=== PATIENT | female | born 1935 | race Caucasian/White ===

== ENCOUNTER 2021-06-27 16:12 | Inpatient (IN) ==
--- NOTE | 2021-06-27 16:40 | Emergency Department Note ---
Impression & Plan Atrial fibrillation with RVR, Edema, peripheral ED Provider Note NAME: NILSA COOLEY AGE: 86 SEX: F : 1935 ARRIVES VIA: Ambulance INFORMANT: Patient, EMS ED PROVIDER(S): Brian Vanessa DO CHIEF COMPLAINT: Palpitations HPI: The patient is an 86-year-old female who presented to the emergency department by ambulance from [facility] for an evaluation of palpitations. The patient is has been experiencing lower extremity edema and dyspnea on exertion for the last 2 weeks. She has been taking her medications at home according to her and the prehospital personnel. Her daughter took her to see the clinic today and she was found to be in rapid atrial fibrillation. This would be a new diagnosis for her. For this reason she was sent to the emergency department for further evaluation and work-up. The patient states at rest she has no symptoms. She does have significant exertional dyspnea. She denies havi ng any chest pain. She states she has no difficulty urinating. She denies having any cough or fever. The patient denies having any recent trauma. She states she has noticed a lot of swelling in both legs. She has had no decreased urination. ROS: See above HPI for pertinent positives & negatives. A total of 10 systems reviewed and were otherwise negative. PAST MEDICAL HISTORY: See Below PAST SURGICAL HISTORY: See Below FAMILY HISTORY: See Below SOCIAL HISTORY: See Below HOME MEDICATIONS: See Below ALLERGIES: See Below VITALS: See Below PHYSICAL EXAMINATION: GENERAL: Patient is awake alert in no acute distress patient is resting comfortably and showing no signs of anxiety EYES: The conjunctivae are clear. The pupils are round and reactive. EARS, NOSE, MOUTH AND THROAT: The nose is without any evidence of any deformity. NECK: The neck is nontender and supple. RESPIRATORY: Diminished breath sounds are noted both bases. There is no tachypnea or conversational dyspnea. CARDIOVASCULAR: Tachycardic and irregular heart sounds were noted to auscultation. No definite murmur was noted. GASTROINTESTINAL: The abdomen is soft. Abdomen is nontender. MUSCULOSKELETAL/EXTREMITIES: There is no evidence of gross deformity full range of motion is noted in the hips and shoulders. SKIN: Skin is warm and dry. Pedal edema was noted bilaterally. NEUROLOGIC: Patient is awake alert and oriented x3. MEDICAL DECISION MAKING: The patient is an 86-year-old female who presented to the emergency department for an evaluation of palpitations. The patient has had ongoing dyspnea on exertion and lower extremity edema. She was found to be in rapid atrial fibrillation and was sent to the emergency department for further evaluation. The patient was treated with a small fluid bolus as well as IV Cardizem. Symptoms significantly improved. I discussed the patient's laboratory and radiographic studies with her. [facility] also [facility] They have agreed to evaluate the patient in the emergency department for further management and disposition. Triage Nursing notes reviewed. Prior medical records reviewed Vital Signs: reviewed and remarkable for tachycardia. Differential diagnosis: Reactive airway disease, pneumonia, pneumothorax, COPD, CHF, infections, cardiac ischemia, pulmonary embolism, musculoskeletal, gastrointestinal, as well as other pathologies. ER treatment provided: See below Diagnostics interpreted by me: ECG: EKG was obtained in the emergency department. My interpretation is atrial fibrillation at 153 bpm. There were no PVCs noted. Low voltage was noted throughout. This was compared to the tracing done in the clinic earlier in the day. There was no significant changes noted. Cardiac Monitoring: An order was placed for continuous cardiac monitoring. The monitor shows a rate of 115 bpm with atrial fibrillation with RVR. Laboratory studies: As stated above and show below. Imaging studies: See below Consultation(s): I discussed this case with Afsaneh who was information assurance analyst [facility]. Past Med/Surg History Medical History Osteoporosis Surgical History History of cataract surgery History of hysterectomy History of tonsillectomy and adenoidectomy Family History Sister Breast cancer Mother Coronary heart disease Social History (Updated 06/27/21 @ 19:10 by Danica Acevedo PA-C) Smoking Status: Never smoker Hx Alcohol Use: No Hx Substance Use: No Feels Safe at Home: Yes Allergies Allergies Allergy/AdvReac Type Severity Reaction Status Date / Time No Known Allergies Allergy Unverified 06/27/21 18:13 Home Meds Home Medications Medication Instructions Recorded Confirmed alendronate 70 mg tablet See Rx Instructions .ROUTE .COMPLEX 06/27/21 06/27/21 Results & Data (ED) Vital Signs Vital Signs - 24 hr 06/27/21 16:50 06/27/21 16:56 06/27/21 17:31 Temperature 36.7 C Temperature Source Oral Pulse Rate 140 H 99 H Pulse Rate [Apical] Respiratory Rate 18 Blood Pressure 124/94 144/94 H Blood Pressure [Left Arm] Blood Pressure Mean 104 110 Blood Pressure Mean [Left Arm] Pulse Oximetry 97 97 97 Oxygen Delivery Method Room Air Room Air Room Air Sepsis Recent Fever Within 48 Hours No Sepsis New/Unexplained Change in Mental Status No Sepsis Action Taken by Nursing No Action Required 06/27/21 17:40 06/27/21 17:46 Temperature Temperature Source Pulse Rate Pulse Rate [Apical] 100 H 98 H Respiratory Rate 18 Blood Pressure Blood Pressure [Left Arm] 144/96 H 120/84 Blood Pressure Mean Blood Pressure Mean [Left Arm] 112 96 Pulse Oximetry 97 96 Oxygen Delivery Method Room Air Room Air Sepsis Recent Fever Within 48 Hours Sepsis New/Unexplained Change in Mental Status Sepsis Action Taken by Assisted Medications Current Medication List: was personally reviewed by me Laboratory Data Attestation: I reviewed the patient's lab results. Result diagrams: 06/27/21 17:00 06/27/21 17:00 Lab Results 06/27/21 06/27/21 06/27/21 Range/Units 16:55 17:00 17:00 WBC 7.77 (4.8-10.8) K/uL RBC 4.08 L (4.2-5.4) M/uL Hgb 11.9 L (12.0-16.0) g/dL Hct 38.5 (37-47) % MCV 94.4 (80-100) fL MCH 29.2 (25-34) pg MCHC 30.9 L (32-36) g/dL RDW Std Deviation 48.8 H (36.4-46.3) fL RDW Coeff of Milady 14.0 (11.5-14.5) % Plt Count 308 (130-400) K/uL MPV 10.2 (7.4-10.4) fL Immature Gran % (Auto) 0.1 % Neut % (Auto) 60.3 % Lymph % (Auto) 26.9 % [place] % (Auto) 10.8 % Eos % (Auto) 1.4 % Baso % (Auto) 0.5 % Neut # (Auto) 4.68 (1.4-6.5) K/uL Lymph # (Auto) 2.09 (1.2-3.4) K/uL [place] # (Auto) 0.84 H (0.11-0.59) K/uL Eos # (Auto) 0.11 (0-0.5) K/uL Baso # (Auto) 0.04 (0-0.2) K/uL Immature Gran # (Auto) 0.01 (0.00-0.02) K/uL PT 10.3 (9.0-12.0) Seconds INR 1.0 (0.9-1.1) APTT 24.1 (21.0-31.0) Seconds PTT Ratio 0.9 Sodium (136-145) mmol/L Potassium (3.5-5.1) mmol/L Chloride (98-107) mmol/L Carbon Dioxide (21-32) mmol/L Anion Gap (3-11) BUN (7-18) mg/dl Creatinine (0.6-1.2) mg/dl Est Cr Clr Drug Dosing ml/min Est GFR ( Amer) ml/min Est GFR (Non-Af Amer) ml/min BUN/Creatinine Ratio (10-20) Glucose (70-99) mg/dl Calcium (8.5-10.1) mg/dl Magnesium (1.8-2.4) mg/dl Total Bilirubin (0.2-1) mg/dl AST (15-37) U/L ALT (12-78) Alkaline Phosphatase (45-117) U/L Troponin I (0-0.045) ng/ml NT-Pro-B Natriuret Pep (0-1800) pg/ml Total Protein (6.4-8.2) gm/dl Albumin (3.4-5.0) gm/dl Globulin (2.5-4.0) gm/dl Albumin/Globulin Ratio (0.9-2) TSH (0.300-4.500) uIu/ml SARS-CoV-2, RNA, NAAT NEGATIVE (NEGATIVE) 06/27/21 Range/Units 17:00 WBC (4.8-10.8) K/uL RBC (4.2-5.4) M/uL Hgb (12.0-16.0) g/dL Hct (37-47) % MCV (80-100) fL MCH (25-34) pg MCHC (32-36) g/dL RDW Std Deviation (36.4-46.3) fL RDW Coeff of Milady (11.5-14.5) % Plt Count (130-400) K/uL MPV (7.4-10.4) fL Immature Gran % (Auto) % Neut % (Auto) % Lymph % (Auto) % [place] % (Auto) % Eos % (Auto) % Baso % (Auto) % Neut # (Auto) (1.4-6.5) K/uL Lymph # (Auto) (1.2-3.4) K/uL [place] # (Auto) (0.11-0.59) K/uL Eos # (Auto) (0-0.5) K/uL Baso # (Auto) (0-0.2) K/uL Immature Gran # (Auto) (0.00-0.02) K/uL PT (9.0-12.0) Seconds INR (0.9-1.1) APTT (21.0-31.0) Seconds PTT Ratio Sodium 139 (136-145) mmol/L Potassium 4.7 (3.5-5.1) mmol/L Chloride 107 (98-107) mmol/L Carbon Dioxide 26 (21-32) mmol/L Anion Gap 6.0 (3-11) BUN 15 (7-18) mg/dl Creatinine 0.86 (0.6-1.2) mg/dl Est Cr Clr Drug Dosing 45.5 ml/min Est GFR ( Amer) 70.4 ml/min Est GFR (Non-Af Amer) 60.7 ml/min BUN/Creatinine Ratio 17.9 (10-20) Glucose 98 (70-99) mg/dl Calcium 9.0 (8.5-10.1) mg/dl Magnesium 2.3 (1.8-2.4) mg/dl Total Bilirubin 0.4 (0.2-1) mg/dl AST 18 (15-37) U/L ALT 22 (12-78) Alkaline Phosphatase 58 (45-117) U/L Troponin I < 0.015 (0-0.045) ng/ml NT-Pro-B Natriuret Pep 1908 H (0-1800) pg/ml Total Protein 7.2 (6.4-8.2) gm/dl Albumin 3.8 (3.4-5.0) gm/dl Globulin 3.4 (2.5-4.0) gm/dl Albumin/Globulin Ratio 1.1 (0.9-2) TSH 2.330 (0.300-4.500) uIu/ml SARS-CoV-2, RNA, NAAT (NEGATIVE) Administered Medications Diltiazem HCl 125 mg/ Dextrose 125 mls @ 5 mls/hr IV .Q24H [facility]; Protocol Stop: 07/27/21 18:44 Last Admin: 06/27/21 19:35 Dose: 5 mg/hr, 5 mls/hr Documented by: [id number] Cosigned by: [id number] Heparin Sodium/Dextrose (Heparin Sodium/Dextrose) 25,000 units in 500 mls @ 22 mls/hr IV .[id number] [facility]; Protocol Stop: 07/27/21 19:29 Last Admin: 06/27/21 21:39 Dose: 1,100 units/hr, 22 mls/hr Documented by: [id number] Cosigned by: [id number] Metoprolol Tartrate (Metoprolol Tartrate 25 Mg Tab) 12.5 mg PO BID [facility] Stop: 07/27/21 20:59 Last Admin: 06/27/21 23:08 Dose: 12.5 mg Documented by: [id number] Discontinued Medications Diltiazem HCl (Diltiazem Hcl 5 Mg/Ml 5 Ml Vial) 10 mg IV NOW STA Stop: 06/27/21 17:16 Last Admin: 06/27/21 17:26 Dose: 10 mg Documented by: [id number] Cosigned by: [id number] Sodium Chloride (Nss) 500 mls @ 999 mls/hr IV .Q31M ONE Stop: 06/27/21 17:45 Last Infusion: 06/27/21 18:06 Dose: 0 mls/hr Documented by: [id number] Admin: 06/27/21 17:26 Dose: 999 mls/hr Documented by: [id number] Imaging Data Radiologist's Impression: Chest X-Ray 06/27/21 16:37 XR chest 1V portable CLINICAL HISTORY: weakness TECHNIQUE: Single frontal radiograph of the chest was obtained. Comparison: None available at the time of this dictation. FINDINGS: No lines and tubes are seen. The cardiomediastinal silhouette is normal. The lungs are clear. No evidence of pleural effusion or pneumothorax. IMPRESSION: No acute chest disease. ACT 112: Negative or not required by law. Electronically signed by: Olivier Arango M.D. 06/27/2021 5:01 PM Discharge Plan Visit Data Chief Complaint: Cardiac Assessment Stated Complaint: CARDIAC ASSESSMENT (NEW ONSET A-FIB), LEG EDEMA ED Provider: Brian Vanessa Discharge Problem: Atrial fibrillation with RVR, Edema, peripheral Patient Disposition: Being Evaluated by Hospitalist Discharge Instructions Interventions: ED Discharge Assessment Last Done: 06/27/21 19:59
--- NOTE | 2021-06-27 17:02 | XRay Report ---
XR chest 1V portable CLINICAL HISTORY: weakness TECHNIQUE: Single frontal radiograph of the chest was obtained. Comparison: None available at the time of this dictation. FINDINGS: No lines and tubes are seen. The cardiomediastinal silhouette is normal. The lungs are clear. No evid ence of pleural effusion or pneumothorax. IMPRESSION: No acute chest disease. ACT 112: Negative or not required by law. Electronically signed by: Olivier Arango M.D. 06/27/2021 5:01 PM
[2021-06-27 17:07] LABS: Basophils # (auto) 0.04 K/uL (0-0.2); Basophils % (auto) 0.5 %; Eosinophils # (auto) 0.11 K/uL (0-0.5); Eosinophils % (auto) 1.4 %; Hematocrit (blood only) 38.5 % (37-47); Hemoglobin 11.9 g/dL (12.0-16.0); Immature Granulocytes # (auto) 0.01 K/uL (0.00-0.02); Immature Granulocytes % (auto) 0.1 %; Lymphocytes # (auto) 2.09 K/uL (1.2-3.4); Lymphocytes % (auto) 26.9 %; Mean Corpuscular Hemoglobin 29.2 pg (25-34); Mean Corpuscular Hgb Conc 30.9 g/dL (32-36); Mean Corpuscular Volume 94.4 fL (80-100); Mean Platelet Volume 10.2 fL (7.4-10.4); Monocytes # (auto) 0.84 K/uL (0.11-0.59); Monocytes % (auto) 10.8 %; Neutrophils # (auto) 4.68 K/uL (1.4-6.5); Neutrophils % (auto) 60.3 %; Platelet Count 308 K/uL (130-400); RDW Standard Deviation 48.8 fL (36.4-46.3); Red Blood Count 4.08 M/uL (4.2-5.4); White Blood Count 7.77 K/uL (4.8-10.8)
[2021-06-27] MEDS ORDERED: SODIUM CHLORIDE 0.9% 500 ML IV ONE (17:15)
[2021-06-27] MEDS ORDERED: dilTIAZem HCl 5 MG/ML 5 ML VIAL IV STA (17:15)
[2021-06-27 17:18] LABS: Partial Thromboplastin Ratio 0.9; Partial Thromboplastin Time 24.1 Seconds (21.0-31.0); Prothrombin Time 10.3 Seconds (9.0-12.0)
[2021-06-27 17:23] LABS: Alanine Aminotransferase 22 (12-78); Albumin Level 3.8 gm/dl (3.4-5.0); Aspartate Aminotransferase 18 U/L (15-37); BUN Creatinine Ratio 17.9 (10-20); Blood Urea Nitrogen 15 mg/dl (7-18); Carbon Dioxide 26 mmol/L (21-32); Chloride 107 mmol/L (98-107); Creatinine Clr Calc Pharmacy 45.5 ml/min; Est GFR (African American) 70.4 ml/min; Est GFR (Non-African American) 60.7 ml/min; Glucose 98 mg/dl (70-99); Magnesium 2.3 mg/dl (1.8-2.4); Potassium 4.7 mmol/L (3.5-5.1); Sodium 139 mmol/L (136-145)
[2021-06-27 17:34] LABS: Albumin Globulin Ratio 1.1 (0.9-2); Alkaline Phosphatase 58 U/L (45-117); Bilirubin,Total 0.4 mg/dl (0.2-1); Globulin 3.4 gm/dl (2.5-4.0); NT Pro B Type Natriuretic Pept 1908 pg/ml (0-1800); Total Protein 7.2 gm/dl (6.4-8.2); Troponin I < 0.015 ng/ml (0-0.045)
--- NOTE | 2021-06-27 18:20 | History & Physical Report ---
Date of Service June 27, 2021 Assessment & Plan (1) Atrial fibrillation with RVR: Plan: Patient is 86-year-old female with PMH osteoporosis presented to ER from PCPs office for found new onset atrial fibrillation. C/O exertional SOB x month. In ER patient afebrile, P: 140, R: 18, BP 124/94, 97% on room air. No leukocytosis, no significant electrolyte abnormality, TSH WNL, negative initial troponin. EKG A. fib RVR rate 153. In ER was given 500 mL NSS, diltiazem 10 mg IV pulse down to 98 and back up to 130's Start Cardizem drip [id number]: 3 (age, female) IV heparin Metoprolol tartrate 12.5 po BID Echo Trend troponin cardiology consult CBC, BMP in a.m. (2) Lower extremity edema: Plan: BLE, left worse than right x months Obtain doppler BLE to r/o DVT (3) Osteoporosis: Plan: Hold alendronate for now DVT Prophylaxis On IV Heparin Full Code as per discussion with pt Follows with Dr Zahra Monte for routine care Pt was seen and care coordinated with Dr Balderas. See addendum History of Present Illness Chief Complaint: Exertional SOB, Tachycardia Primary Care Provider: Zahra Monte DO Patient is 86-year-old female with PMH osteoporosis presented to ER from PCPs office for tachycardia. Patient reports exertional shortness of breath for the past month. Also reports lower extremity edema with left leg being worse than the right leg for the past several months. Today was being seen at PCPs office and was noted to have irregular pulse and found to have A. fib RVR on EKG and was referred to ER. At rest patient denies any shortness of breath. She denies any chest pain, dizziness, palpitations. No known cardiac history. Denies fever/chills, diaphoresis, N/V/D/C, [place], dizziness, syncope, vision changes, neck pain, orthopnea, palpitations, cough, sore throat, choking, otalgia, rhinorrhea, abdominal pain, paresthesias, weakness, extremity weakness, rashes, urinary symptoms. In ER patient afebrile, P: 140, R: 18, BP 124/94, 97% on room air. No leukocytosis, no significant electrolyte abnormality, TSH WNL, negative initial troponin. EKG A. fib RVR rate 153. In ER was given 500 mL NSS, diltiazem 10 mg IV. Allergies Allergy/AdvReac Type Severity Reaction Status Date / Time No Known Allergies Allergy Unverified 06/27/21 18:13 Home Medications Medication Instructions Recorded Confirmed Type alendronate 70 mg tablet See Rx Instructions .ROUTE .COMPLEX 06/27/21 06/27/21 History Past Med/Surg History Medical History Osteoporosis Surgical History History of cataract surgery History of hysterectomy History of tonsillectomy and adenoidectomy Family History Sister Breast cancer Mother Coronary heart disease Social History (Updated 06/27/21 @ 19:10 by Danica Acevedo PA-C) Smoking Status: Never smoker Hx Alcohol Use: No Hx Substance Use: No Feels Safe at Home: Yes Review of Systems Review of Systems: All systems reviewed & are unremarkable except as noted in HPI & below Physical Exam Physical Exam: General: no distress, WDWN Head: normocephalic, atraumatic Eyes: conjunctiva non-injected, anicteric ENT: hard of hearing, normal inspection external ears, nose, mucous membranes moist Neck: supple, trachea midline Lungs: clear, no respiratory distress, no wheezing/rhonchi/rales CV: irregularly irregular, rate 120, +bilateral lower extremity edema Abd: normal BS, soft, non-tender Ext: no erythema, no calf tenderness, +venous stasis changes bilateral lower legs Neuro: A&O x 3, no focal deficits noted, normal affect Skin: warm, dry Results & Data Results & Data ([facility]) Vital Signs (Past 12 Hours) Vital Signs Temp Pulse Pulse Resp BP BP Pulse Ox 06/27/21 17:46 98 H 120/84 96 06/27/21 17:40 100 H 18 144/96 H 97 06/27/21 17:31 99 H 144/94 H 97 06/27/21 16:56 97 06/27/21 16:50 36.7 C 140 H 18 124/94 97 Laboratory Results Short CBC 06/27/21 Range/Units 17:00 WBC 7.77 (4.8-10.8) K/uL Hgb 11.9 L (12.0-16.0) g/dL Hct 38.5 (37-47) % Plt Count 308 (130-400) K/uL BMP 06/27/21 17:00 Sodium 139 Potassium 4.7 Chloride 107 Carbon Dioxide 26 BUN 15 Creatinine 0.86 Glucose 98 Calcium 9.0 Cardiac Enzymes 06/27/21 Range/Units 17:00 Troponin I < 0.015 (0-0.045) ng/ml Liver Function 06/27/21 Range/Units 17:00 Total Bilirubin 0.4 (0.2-1) mg/dl AST 18 (15-37) U/L ALT 22 (12-78) Alkaline Phosphatase 58 (45-117) U/L Albumin 3.8 (3.4-5.0) gm/dl Diagnostic Findings Chest X-Ray 06/27/21 16:37 XR chest 1V portable CLINICAL HISTORY: weakness TECHNIQUE: Single frontal radiograph of the chest was obtained. Comparison: None available at the time of this dictation. FINDINGS: No lines and tubes are seen. The cardiomediastinal silhouette is normal. The lungs are clear. No evidence of pleural effusion or pneumothorax. IMPRESSION: No acute chest disease. ACT 112: Negative or not required by law. Electronically signed by: Olivier Arango M.D. 06/27/2021 5:01 PM ECG Rate (beats per minute): 153 Rhythm: atrial fibrillation Code Status & VTE Plan VTE Prophylaxis Plan VTE Prophylaxis will be ordered: Yes Supervising Physician Co-Signing Physician Notes Is an 86-year-old female who presents to ED for evaluation as recommended by his PCP for tachycardia. Patient was found to be in A. fib RVR while in ED. Patient also states having worsening lower extremity edema for the last few days. Denies any history of chest pain, palpitations, dizziness, nausea. Please review HPI for complete details of presentation. BNP elevated 1908. TSH within normal limits. Diltiazem drip was started while in ED. On exam patient is moderately built and nourished, no apparent distress, normocephalic atraumatic, EOMI, lungs are clear to auscultation, normal breath sounds, irregularly irregular rhythm, tachycardia, bilateral lower extremity edema present, no murmur, abdomen soft, nontender, normal bowel sounds, alert, awake, oriented, grossly no focal deficits. Patient is admitted for management of A. fib RVR, worsening lower extremity edema. Continue Cardizem drip and start on IV heparin. Start on metoprolol 12.5 mg twice daily. Trend cardiac enzymes, check resting echo and consult cardiology. We will keep her n.p.o. after midnight. Will check venous Dopplers to rule out DVT. Consider IV diuretics if needed. Further management based on results. I personally reviewed the record. Patient is interviewed and examined at bedside. Patient's care is coordinated with Danica Acevedo PA-C. Please refer to the documentation above for details of patient's presentation and for discussion of other issues.
[2021-06-27] MEDS ORDERED: STAT IV Infusion **Titration per Protocol STA (18:43)
[2021-06-27] MEDS ORDERED: dilTIAZem HCL 125 MG in DEXTROSE 5% 100 ML IV SCH (18:45)
[2021-06-27] MEDS ORDERED: HEPARIN SODIUM/DEXTROSE 25,000 UNITS/500 ML BAG IV SCH (19:30)
[2021-06-27] MEDS ORDERED: ACETAMINOPHEN 325 MG TAB PO PRN (19:58)
[2021-06-27] MEDS ORDERED: METOPROLOL TARTRATE 25 MG TAB PO SCH (21:00)
[2021-06-27] MEDS: Heparin IV Adult Wt-Based Standard *NO* Bolus Protocol IV SCH (21:39)
[2021-06-28 03:34] LABS: Hemoglobin 10.4 g/dL (12.0-16.0); Mean Corpuscular Hemoglobin 29.1 pg (25-34); Mean Corpuscular Hgb Conc 31.5 g/dL (32-36); Mean Corpuscular Volume 92.4 fL (80-100); Mean Platelet Volume 9.5 fL (7.4-10.4); Platelet Count 266 K/uL (130-400); RDW Standard Deviation 47.6 fL (36.4-46.3); Red Blood Count 3.57 M/uL (4.2-5.4); White Blood Count 6.72 K/uL (4.8-10.8)
[2021-06-28 04:07] LABS: BUN Creatinine Ratio 15.9 (10-20); Blood Urea Nitrogen 13 mg/dl (7-18); Calcium 8.5 mg/dl (8.5-10.1); Carbon Dioxide 27 mmol/L (21-32); Chloride 106 mmol/L (98-107); Est GFR (African American) 76.8 ml/min; Est GFR (Non-African American) 66.3 ml/min; Glucose 94 mg/dl (70-99); Magnesium 2.2 mg/dl (1.8-2.4); Potassium 3.9 mmol/L (3.5-5.1); Sodium 137 mmol/L (136-145); Troponin I < 0.015 ng/ml (0-0.045)
[2021-06-28] MEDS: Heparin IV Adult Wt-Based Standard *NO* Bolus Protocol IV SCH (04:12)
[2021-06-28 04:42] LABS: Partial Thromboplastin Time 78.6 Seconds (21.0-31.0)
--- NOTE | 2021-06-28 07:10 | Ultrasound Report ---
BILATERAL LOWER EXTREMITY VENOUS DOPPLER HISTORY: Acute pain and swelling of the lower extremities r/o dvt COMPARISON STUDY: None. FINDINGS: There is normal compressibility, flow, and augmentation within the bilateral lower extremit y deep venous systems. Mildly complex left-sided Schwab's cyst measures 3.5 x 4.1 x 1.6 cm. IMPRESSION: No DVT within the right or left lower extremity. ACT 112: Negative or not required by law. Electronically signed by: Donta Moe M.D. 06/28/2021 7:09 AM
[2021-06-28] MEDS ORDERED: APIXABAN 5 MG TABLET PO SCH (09:30)
--- NOTE | 2021-06-28 09:35 | Cardiology Consultation ---
Date of Consultation June 28, 2021 Assessment & Plan (1) Atrial fibrillation with RVR: (2) Aortic stenosis: (3) Lower extremity edema: 86-year-old female presents with atrial fibrillation rapid ventricular response. Mildly symptomatic, reporting dyspnea on exertion. Risk versus benefit of chronic anticoagulation discussed. Recommend transition of IV heparin to Eliquis, 5 mg twice daily. Heparin will be discontinued this morning. Rate controlled overnight with low-dose intravenous Cardizem infusion and 1 dose of metoprolol. Recommend discontinuation of Cardizem this morning. She will receive dose of 25 mg metoprolol. Continue telemetry monitoring. If heart rate remains reasonably controlled, she may be discharged home this afternoon on oral beta-rafaela and Eliquis. Cardiology follow-up in 1-2 weeks. Bedside 2D transthoracic echocardiogram demonstrating preserved LV systolic function with moderate aortic valve stenosis. Continued surveillance recommended. History of Present Illness Reason for Consultation: Atrial fibrillation with rapid ventricular response Requesting Physician: Dr. Leahy Attending Physician: Jabari Leahy MD History of Present Illness 86-year-old female present to the emergency department secondary to atrial fibri llation with rapid ventricular response. Evaluated at her primary care office yesterday. Irregular tachycardic rhythm noted. ECG confirming atrial fibrillation. Patient denies chest discomfort, palpitations, lightheadedness, dizziness, syncope, or near syncope. Reports lower extremity edema present for several months. Notes dyspnea when climbing stairs and performing some daily activities. ECG on admission demonstrates atrial fibrillation with rapid ventricular response. She was treated with intravenous Cardizem infusion and 1 dose of oral Lopressor, 12.5 mg. Anticoagulated with heparin. Denies any gait instability or falls. No history of gastrointestinal bleeding or hemorrhage requiring transfusion. Currently resting comfortably without complaints. Requesting breakfast. Allergies Allergy/AdvReac Type Severity Reaction Status Date / Time No Known Allergies Allergy Unverified 06/27/21 18:13 Home Medications Medication Instructions Recorded Confirmed Type alendronate 70 mg tablet See Rx Instructions .ROUTE .COMPLEX 06/27/21 06/27/21 History apixaban 5 mg tablet (Eliquis) 5 mg PO BID #60 tab 06/28/21 Rx enoxaparin 80 mg/0.8 mL 70 mg SUBCUT Q12H 4 Days #5.6 ml 06/28/21 Rx subcutaneous syringe (Lovenox) Patient History Medical History Osteoporosis Surgical History History of cataract surgery History of hysterectomy History of tonsillectomy and adenoidectomy Family History Sister Breast cancer Mother Coronary heart disease Social History Smoking Status: Never smoker Hx Alcohol Use: No Hx Substance Use: No Communication Ability: Effective Feels Safe at Home: Yes Assistive Devices: None Review of Systems Review of Systems: All systems reviewed & are unremarkable except as noted in Subjective Physical Exam Constitutional: well developed and well nourished; no acute distress and not ill appearing Respiratory: normal respiratory effort; no respiratory distress, no labored breathing and no retractions Auscultation: lungs clear to auscultation bilaterally; no crackles, no rales, no rhonchi and no wheezes Cardiovascular: Rate/Rhythm: + irregularly irregular Heart Sounds: normal S1, normal S2 and + murmur (2/6 low pitched mid peaking systolic ejection murmur) Vessels: no JVD and no carotid bruit Extremities: + edema (Trace to mild bilateral ankle edema) Gastrointestinal (Abdomen): Inspection/Auscultation: abdomen normal to inspection and normal bowel sounds; abdomen not distended Percussion/Palpation: abdomen soft; abdomen nontender, no guarding and abdomen not rigid Psychiatric: A+Ox3, euthymic affect Results & Data ([facility]) Vital Signs (Past 12 Hours) Vital Signs Pulse Pulse Resp BP BP Pulse Ox 06/28/21 07:20 85 18 06/28/21 07:10 76 17 06/28/21 07:00 75 18 06/28/21 06:50 82 20 06/28/21 06:40 73 20 06/28/21 06:30 68 15 06/28/21 06:20 74 18 06/28/21 06:10 82 15 06/28/21 06:00 84 16 06/28/21 05:50 77 17 06/28/21 05:40 82 16 06/28/21 05:30 64 17 06/28/21 05:20 73 15 06/28/21 05:10 77 14 06/28/21 05:00 66 15 06/28/21 04:50 74 16 06/28/21 04:40 69 23 06/28/21 04:30 81 18 06/28/21 04:20 69 17 06/28/21 04:11 87 19 06/28/21 04:09 78 16 105/69 98 06/28/21 04:00 90 23 06/28/21 03:50 72 19 92 06/28/21 03:40 76 17 92 06/28/21 03:30 75 19 93 06/28/21 03:20 85 20 94 06/28/21 03:11 84 18 105/67 96 06/28/21 03:10 82 18 92 06/28/21 03:00 89 20 92 06/28/21 02:50 78 17 92 06/28/21 02:40 74 17 93 06/28/21 02:30 73 17 96 06/28/21 02:20 70 18 92 06/28/21 02:10 76 19 92 06/28/21 02:00 80 18 105/67 93 06/28/21 01:50 78 16 95 06/28/21 01:40 79 18 93 06/28/21 01:30 72 18 90 06/28/21 01:20 79 19 93 06/28/21 01:10 76 17 93 06/28/21 01:00 82 18 94 06/28/21 00:57 80 18 108/71 93 06/28/21 00:50 79 19 90 06/28/21 00:40 80 18 90 06/28/21 00:30 102 H 14 108/71 94 06/28/21 00:20 97 H 21 92 06/28/21 00:10 90 18 91 06/28/21 00:00 94 H 20 91 06/27/21 23:50 106 H 18 94 06/27/21 23:40 112 H 16 92 06/27/21 23:30 114 H 18 92 06/27/21 23:21 145 H 22 06/27/21 23:10 124 H 19 93 06/27/21 22:46 115 H 18 110/93 94
--- NOTE | 2021-06-28 10:40 | Hospitalist Progress Note ---
Date of Service June 28, 2021 Assessment & Plan (1) Atrial fibrillation with RVR: Plan: 86 yo F female w/ osteoporosis presented to ER from PCPs office for found new onset atrial fibrillation. C/O exertional SOB x month. In ER patient afebrile, P: 140, R: 18, BP 124/94, 97% on room air. No leukocytosis, no significant electrolyte abnormality, TSH WNL, negative initial troponin. EKG Britt howard RVR rate 153. In ER was given 500 mL NSS, diltiazem 10 mg IV pulse down to 98 and back up to 130's Started Cardizem drip [id number]: 3 (age, female) IV heparin Metoprolol tartrate 12.5 po BID Echo-EF 55 to 60%. RV is mildly dilated. RV systolic function is mildly reduced. LA is moderately dilated. AV is trileaflet. AV is moderately calcified. Moderate aortic stenosis is present. Mild aortic regurg. There is moderate tricuspid regurg. Estimated systolic pulmonary pressure is 57 mmHg. Dilated inferior vena cava with reduced collapsibility with sniff indicates an elevated right atrial pressure of 15 mmHg. Repeat troponin - negative Cardiology consulted -Recommend to stop IV heparin and start Eliquis, and continue rate control with metoprolol 25 mg twice daily Currently patient is comfortable, heart rate in 70s. Unfortunately Eliquis is too expensive for the patient, will transition to Coumadin, with Lovenox injection bridging (2) Lower extremity edema: Plan: BLE, left worse than right x months Doppler BLE to r/o DVT - negative for DVT (3) Osteoporosis: Plan: Hold alendronate for now DVT Prophylaxis: was on IV Heparin, received Eliquis this AM, plan for coumadin and lovenox this PM Full Code as per discussion with pt Follows with Dr Zahra Monte for routine care Admission and Anticipated Discharge Date Admission Date: June 27, 2021 Subjective Patient seen in follow-up of Britt howard with RVR She was started on IV heparin on admission, then switched this morning to Eliquis Heart rate now seems to be much better controlled She is resting comfortably, in no acute distress, denies any chest pain palpitations shortness of breath Unfortunately Eliquis seems to be quite expensive for the patient, and therefore will switch to Coumadin instead will start lovenox this evening and start coumadin Review of Systems Review of Systems: All systems reviewed & are unremarkable except as noted in Subjective Physical Exam Physical Exam: General: elderly F in NAD Head: normocephalic, atraumatic Eyes: conjunctiva non-injected, anicteric ENT: hard of hearing, normal inspection external ears, nose, mucous membranes moist Neck: supple Lungs: clear, no respiratory distress, no wheezing/rhonchi/rales CV: irregularly irregular, rate 70s, + trace b/l lower extremity edema Abd: normal BS, soft, non-tender Ext: no erythema, no calf tenderness, +venous stasis changes bilateral lower legs Neuro: A&O x 3, no focal deficits noted, normal affect Skin: warm, dry Results & Data Results & Data ([facility]) Vital Signs (Past 12 Hours) Vital Signs Pulse Pulse Resp BP BP Pulse Ox 06/28/21 09:30 75 18 06/28/21 09:20 87 15 06/28/21 09:10 84 17 06/28/21 09:00 80 17 06/28/21 08:50 75 19 06/28/21 08:40 69 20 06/28/21 08:30 75 19 06/28/21 08:20 79 15 06/28/21 08:10 72 18 06/28/21 08:00 81 21 06/28/21 07:50 70 18 06/28/21 07:40 83 20 06/28/21 07:35 117 H 21 06/28/21 07:20 85 18 06/28/21 07:10 76 17 06/28/21 07:00 75 18 06/28/21 06:50 82 20 06/28/21 06:40 73 20 06/28/21 06:30 68 15 06/28/21 06:20 74 18 06/28/21 06:10 82 15 06/28/21 06:00 84 16 06/28/21 05:50 77 17 06/28/21 05:40 82 16 06/28/21 05:30 64 17 06/28/21 05:20 73 15 06/28/21 05:10 77 14 06/28/21 05:00 66 15 06/28/21 04:50 74 16 06/28/21 04:40 69 23 06/28/21 04:30 81 18 06/28/21 04:20 69 17 06/28/21 04:11 87 19 06/28/21 04:09 78 16 105/69 98 06/28/21 04:00 90 23 06/28/21 03:50 72 19 92 06/28/21 03:40 76 17 92 06/28/21 03:30 75 19 93 06/28/21 03:20 85 20 94 06/28/21 03:11 84 18 105/67 96 06/28/21 03:10 82 18 92 06/28/21 03:00 89 20 92 06/28/21 02:50 78 17 92 06/28/21 02:40 74 17 93 06/28/21 02:30 73 17 96 06/28/21 02:20 70 18 92 06/28/21 02:10 76 19 92 06/28/21 02:00 80 18 105/67 93 06/28/21 01:50 78 16 95 06/28/21 01:40 79 18 93 06/28/21 01:30 72 18 90 06/28/21 01:20 79 19 93 06/28/21 01:10 76 17 93 06/28/21 01:00 82 18 94 06/28/21 00:57 80 18 108/71 93 06/28/21 00:50 79 19 90 06/28/21 00:40 80 18 90 06/28/21 00:30 102 H 14 108/71 94 06/28/21 00:20 97 H 21 92 06/28/21 00:10 90 18 91 06/28/21 00:00 94 H 20 91 06/27/21 23:50 106 H 18 94 06/27/21 23:40 112 H 16 92 06/27/21 23:30 114 H 18 92 06/27/21 23:21 145 H 22 06/27/21 23:10 124 H 19 93 06/27/21 22:46 115 H 18 110/93 94 Laboratory Results 06/28/21 06/28/21 06/28/21 Range/Units 03:23 03:23 03:23 WBC 6.72 (4.8-10.8) K/uL RBC 3.57 L (4.2-5.4) M/uL Hgb 10.4 L (12.0-16.0) g/dL Hct 33.0 L (37-47) % MCV 92.4 (80-100) fL MCH 29.1 (25-34) pg MCHC 31.5 L (32-36) g/dL RDW Std Deviation 47.6 H (36.4-46.3) fL RDW Coeff of Milady 14.0 (11.5-14.5) % Plt Count 266 (130-400) K/uL MPV 9.5 (7.4-10.4) fL Immature Gran % (Auto) % Neut % (Auto) % Lymph % (Auto) % [place] % (Auto) % Eos % (Auto) % Baso % (Auto) % Neut # (Auto) (1.4-6.5) K/uL Lymph # (Auto) (1.2-3.4) K/uL [place] # (Auto) (0.11-0.59) K/uL Eos # (Auto) (0-0.5) K/uL Baso # (Auto) (0-0.2) K/uL Immature Gran # (Auto) (0.00-0.02) K/uL PT (9.0-12.0) Seconds INR (0.9-1.1) APTT 78.6 H* (21.0-31.0) Seconds PTT Ratio 3.0 Sodium 137 (136-145) mmol/L Potassium 3.9 D (3.5-5.1) mmol/L Chloride 106 (98-107) mmol/L Carbon Dioxide 27 (21-32) mmol/L Anion Gap 4.0 (3-11) BUN 13 (7-18) mg/dl Creatinine 0.80 (0.6-1.2) mg/dl Est Cr Clr Drug Dosing 49.0 ml/min Est GFR ( Amer) 76.8 ml/min Est GFR (Non-Af Amer) 66.3 ml/min BUN/Creatinine Ratio 15.9 (10-20) Glucose 94 (70-99) mg/dl Calcium 8.5 (8.5-10.1) mg/dl Magnesium 2.2 (1.8-2.4) mg/dl Total Bilirubin (0.2-1) mg/dl AST (15-37) U/L ALT (12-78) Alkaline Phosphatase (45-117) U/L Troponin I < 0.015 (0-0.045) ng/ml NT-Pro-B Natriuret Pep (0-1800) pg/ml Total Protein (6.4-8.2) gm/dl Albumin (3.4-5.0) gm/dl Globulin (2.5-4.0) gm/dl Albumin/Globulin Ratio (0.9-2) TSH (0.300-4.500) uIu/ml SARS-CoV-2, RNA, NAAT (NEGATIVE) 06/27/21 06/27/21 06/27/21 Range/Units 23:00 17:00 17:00 WBC (4.8-10.8) K/uL RBC (4.2-5.4) M/uL Hgb (12.0-16.0) g/dL Hct (37-47) % MCV (80-100) fL MCH (25-34) pg MCHC (32-36) g/dL RDW Std Deviation (36.4-46.3) fL RDW Coeff of Milady (11.5-14.5) % Plt Count (130-400) K/uL MPV (7.4-10.4) fL Immature Gran % (Auto) % Neut % (Auto) % Lymph % (Auto) % [place] % (Auto) % Eos % (Auto) % Baso % (Auto) % Neut # (Auto) (1.4-6.5) K/uL Lymph # (Auto) (1.2-3.4) K/uL [place] # (Auto) (0.11-0.59) K/uL Eos # (Auto) (0-0.5) K/uL Baso # (Auto) (0-0.2) K/uL Immature Gran # (Auto) (0.00-0.02) K/uL PT 10.3 (9.0-12.0) Seconds INR 1.0 (0.9-1.1) APTT 24.1 (21.0-31.0) Seconds PTT Ratio 0.9 Sodium 139 (136-145) mmol/L Potassium 4.7 (3.5-5.1) mmol/L Chloride 107 (98-107) mmol/L Carbon Dioxide 26 (21-32) mmol/L Anion Gap 6.0 (3-11) BUN 15 (7-18) mg/dl Creatinine 0.86 (0.6-1.2) mg/dl Est Cr Clr Drug Dosing 45.5 ml/min Est GFR ( Amer) 70.4 ml/min Est GFR (Non-Af Amer) 60.7 ml/min BUN/Creatinine Ratio 17.9 (10-20) Glucose 98 (70-99) mg/dl Calcium 9.0 (8.5-10.1) mg/dl Magnesium 2.3 (1.8-2.4) mg/dl Total Bilirubin 0.4 (0.2-1) mg/dl AST 18 (15-37) U/L ALT 22 (12-78) Alkaline Phosphatase 58 (45-117) U/L Troponin I < 0.015 < 0.015 (0-0.045) ng/ml NT-Pro-B Natriuret Pep 1908 H (0-1800) pg/ml Total Protein 7.2 (6.4-8.2) gm/dl Albumin 3.8 (3.4-5.0) gm/dl Globulin 3.4 (2.5-4.0) gm/dl Albumin/Globulin Ratio 1.1 (0.9-2) TSH 2.330 (0.300-4.500) uIu/ml SARS-CoV-2, RNA, NAAT (NEGATIVE) 06/27/21 06/27/21 Range/Units 17:00 16:55 WBC 7.77 (4.8-10.8) K/uL RBC 4.08 L (4.2-5.4) M/uL Hgb 11.9 L (12.0-16.0) g/dL Hct 38.5 (37-47) % MCV 94.4 (80-100) fL MCH 29.2 (25-34) pg MCHC 30.9 L (32-36) g/dL RDW Std Deviation 48.8 H (36.4-46.3) fL RDW Coeff of Milady 14.0 (11.5-14.5) % Plt Count 308 (130-400) K/uL MPV 10.2 (7.4-10.4) fL Immature Gran % (Auto) 0.1 % Neut % (Auto) 60.3 % Lymph % (Auto) 26.9 % [place] % (Auto) 10.8 % Eos % (Auto) 1.4 % Baso % (Auto) 0.5 % Neut # (Auto) 4.68 (1.4-6.5) K/uL Lymph # (Auto) 2.09 (1.2-3.4) K/uL [place] # (Auto) 0.84 H (0.11-0.59) K/uL Eos # (Auto) 0.11 (0-0.5) K/uL Baso # (Auto) 0.04 (0-0.2) K/uL Immature Gran # (Auto) 0.01 (0.00-0.02) K/uL PT (9.0-12.0) Seconds INR (0.9-1.1) APTT (21.0-31.0) Seconds PTT Ratio Sodium (136-145) mmol/L Potassium (3.5-5.1) mmol/L Chloride (98-107) mmol/L Carbon Dioxide (21-32) mmol/L Anion Gap (3-11) BUN (7-18) mg/dl Creatinine (0.6-1.2) mg/dl Est Cr Clr Drug Dosing ml/min Est GFR ( Amer) ml/min Est GFR (Non-Af Amer) ml/min BUN/Creatinine Ratio (10-20) Glucose (70-99) mg/dl Calcium (8.5-10.1) mg/dl Magnesium (1.8-2.4) mg/dl Total Bilirubin (0.2-1) mg/dl AST (15-37) U/L ALT (12-78) Alkaline Phosphatase (45-117) U/L Troponin I (0-0.045) ng/ml NT-Pro-B Natriuret Pep (0-1800) pg/ml Total Protein (6.4-8.2) gm/dl Albumin (3.4-5.0) gm/dl Globulin (2.5-4.0) gm/dl Albumin/Globulin Ratio (0.9-2) TSH (0.300-4.500) uIu/ml SARS-CoV-2, RNA, NAAT NEGATIVE (NEGATIVE) Medications Administered Current Inpatient Medications Acetaminophen (Acetaminophen 325 Mg Tab) 650 mg PO Q4H PRN PRN Reason: Pain or Fever Stop: 07/27/21 19:57 Apixaban (Apixaban 5 Mg Tablet) 5 mg PO BID [facility] Stop: 07/28/21 09:29 Metoprolol Tartrate (Metoprolol Tartrate 25 Mg Tab) 25 mg PO BID [facility] Stop: 07/28/21 09:29
[2021-06-28] MEDS: METOPROLOL TARTRATE 25 MG TAB PO SCH ×2 (10:49→21:37)
[2021-06-28 11:27] LABS: Partial Thromboplastin Ratio 4.7
[2021-06-28 11:30] LABS: Partial Thromboplastin Time 124.2 Seconds (21.0-31.0)
[2021-06-28 13:30] LABS: INR 1.2 (0.9-1.1); Prothrombin Time 11.6 Seconds (9.0-12.0)
[2021-06-28] MEDS ORDERED: WARFARIN SOD 5 MG TAB PO SCH (16:00)
--- NOTE | 2021-06-28 21:24 | Electrocardiogram Report ---
Test Reason : Blood Pressure : / mmHG Vent. Rate : 153 BPM Atrial Rate : 166 BPM P-R Int : 000 ms QRS Dur : 074 ms QT Int : 282 ms P-R-T Axes : 000 031 -27 degrees QTc Int : 450 ms Poor data quality, interpretation may be adversely affected Atrial fibrillation with rapid ventricular response Low voltage QRS Cannot rule out Anterior infarct , age undetermined Nonspecific T wave abnormality Abnormal ECG No previous ECGs available Confirmed by Pedro Licona ([id number]) on 06/28/2021 9:23:41 PM Referred By: REFERRED SELF Confirmed By:Pedro Licona
[2021-06-28] MEDS: ENOXAPARIN 80 MG/0.8 ML SYR SQ SCH (21:37)
[2021-06-29 06:12] LABS: Hematocrit (blood only) 35.9 % (37-47); Hemoglobin 11.2 g/dL (12.0-16.0)
[2021-06-29 06:31] LABS: INR 1.1 (0.9-1.1); Prothrombin Time 11.3 Seconds (9.0-12.0)
--- NOTE | 2021-06-29 06:31 | Electrocardiogram Report ---
Test Reason : Blood Pressure : / mmHG Vent. Rate : 087 BPM Atrial Rate : 125 BPM P-R Int : 000 ms QRS Dur : 066 ms QT Int : 394 ms P-R-T Axes : 000 041 016 degrees QTc Int : 474 ms Atrial fibrillation Low voltage QRS Abnormal ECG When compared with ECG of 27-JUN-2021 16:44, Vent. rate has decreased BY 66 BPM Nonspecific T wave abnormality no longer evident in Anterior leads Confirmed by Pedro Licona ([id number]) on 06/29/2021 6:31:25 AM Referred By: REFERRED SELF Confirmed By:Pedro Licona
[2021-06-29 06:39] LABS: BUN Creatinine Ratio 19.9 (10-20); Calcium 8.2 mg/dl (8.5-10.1); Creatinine Clr Calc Pharmacy 40.8 ml/min; Est GFR (African American) 61.6 ml/min; Est GFR (Non-African American) 53.2 ml/min; Magnesium 2.2 mg/dl (1.8-2.4); Phosphorus 3.4 mg/dl (2.5-4.9); Potassium 4.1 mmol/L (3.5-5.1)
--- NOTE | 2021-06-29 08:25 | Hospitalist Progress Note ---
Date of Service June 29, 2021 Assessment & Plan (1) Atrial fibrillation with RVR: Plan: 86 yo F female w/ osteoporosis presented to ER from PCPs office for found new onset atrial fibrillation. C/O exertional SOB x month. In ER patient afebrile, P: 140, R: 18, BP 124/94, 97% on room air. No leukocytosis, no significant electrolyte abnormality, TSH WNL, negative initial troponin. EKG Britt howard RVR rate 153. In ER was given 500 mL NSS, diltiazem 10 mg IV pulse down to 98 and back up to 130's Started Cardizem drip [id number]: 3 (age, female) IV heparin Metoprolol tartrate 12.5 po BID Echo-EF 55 to 60%. RV is mildly dilated. RV systolic function is mildly reduced. LA is moderately dilated. AV is trileaflet. AV is moderately calcified. Moderate aortic stenosis is present. Mild aortic regurg. There is moderate tricuspid regurg. Estimated systolic pulmonary pressure is 57 mmHg. Dilated inferior vena cava with reduced collapsibility with sniff indicates an elevated right atrial pressure of 15 mmHg. Repeat troponin - negative Cardiology consulted -Recommend to stop IV heparin and start Eliquis, and continue rate control with metoprolol 25 mg twice daily Currently patient is comfortable, heart rate in 70s. Unfortunately Eliquis is too expensive for the patient, transitioned to Coumadin, with Lovenox injection for bridging 06/29 -patient feels well, and would like to be discharged home. She is comfortable with injecting Lovenox and be discharged with Lovenox and Coumadin. Follow-up appointments arranged for the patient. (2) Lower extremity edema: Plan: BLE, left worse than right x months Doppler BLE to r/o DVT - negative for DVT (3) Osteoporosis: Plan: Hold alendronate for now DVT Prophylaxis: lovenox Full Code as per discussion with pt Follows with Dr Zahra Monte for routine care Admission and Anticipated Discharge Date Admission Date: June 27, 2021 Subjective Patient seen in follow-up of Britt howard with RVR She is resting comfortably, in no acute distress, denies any chest pain palpitations shortness of breath Unfortunately Eliquis seems to be quite expensive for the patient, and therefore switched to Coumadin She will be discharged w/lovenox injections for bridging Review of Systems Review of Systems: All systems reviewed & are unremarkable except as noted in Subjective Physical Exam Physical Exam: General: elderly F in NAD Head: normocephalic, atraumatic Eyes: conjunctiva non-injected, anicteric ENT: hard of hearing, normal inspection external ears, nose, mucous membranes moist Neck: supple Lungs: clear, no respiratory distress, no wheezing/rhonchi/rales CV: irregularly irregular, rate 90s, + trace b/l lower extremity edema Abd: normal BS, soft, non-tender Ext: no erythema, no calf tenderness, +venous stasis changes bilateral lower legs Neuro: A&O x 3, no focal deficits noted, normal affect Skin: warm, dry Results & Data Results & Data ([facility]) Vital Signs (Past 12 Hours) Vital Signs Pulse Pulse Resp BP BP Pulse Ox 06/29/21 08:00 116 H 18 119/90 06/29/21 07:00 113 H 20 06/29/21 06:43 110 H 21 118/92 96 06/29/21 06:00 105 H 18 06/29/21 05:00 113 H 18 06/29/21 04:37 71 19 131/102 H 91 06/29/21 03:00 105 H 21 131/97 95 06/28/21 23:00 108 H 17 06/28/21 22:00 99 H 20 06/28/21 21:00 118 H 22 Laboratory Results 06/29/21 06/29/21 06/29/21 Range/Units 05:44 05:44 05:44 Hgb 11.2 L (12.0-16.0) g/dL Hct 35.9 L (37-47) % PT 11.3 (9.0-12.0) Seconds INR 1.1 (0.9-1.1) APTT (21.0-31.0) Seconds PTT Ratio Sodium 139 (136-145) mmol/L Potassium 4.1 (3.5-5.1) mmol/L Chloride 107 (98-107) mmol/L Carbon Dioxide 26 (21-32) mmol/L Anion Gap 6.0 (3-11) BUN 19 H (7-18) mg/dl Creatinine 0.96 (0.6-1.2) mg/dl Est Cr Clr Drug Dosing 40.8 ml/min Est GFR ( Amer) 61.6 ml/min Est GFR (Non-Af Amer) 53.2 ml/min BUN/Creatinine Ratio 19.9 (10-20) Glucose 85 (70-99) mg/dl Calcium 8.2 L (8.5-10.1) mg/dl Phosphorus 3.4 (2.5-4.9) mg/dl Magnesium 2.2 (1.8-2.4) mg/dl 06/28/21 06/28/21 Range/Units 13:11 10:43 Hgb (12.0-16.0) g/dL Hct (37-47) % PT 11.6 (9.0-12.0) Seconds INR 1.2 H (0.9-1.1) APTT 124.2 H* (21.0-31.0) Seconds PTT Ratio 4.7 Sodium (136-145) mmol/L Potassium (3.5-5.1) mmol/L Chloride (98-107) mmol/L Carbon Dioxide (21-32) mmol/L Anion Gap (3-11) BUN (7-18) mg/dl Creatinine (0.6-1.2) mg/dl Est Cr Clr Drug Dosing ml/min Est GFR ( Amer) ml/min Est GFR (Non-Af Amer) ml/min BUN/Creatinine Ratio (10-20) Glucose (70-99) mg/dl Calcium (8.5-10.1) mg/dl Phosphorus (2.5-4.9) mg/dl Magnesium (1.8-2.4) mg/dl Medications Administered Current Inpatient Medications Acetaminophen (Acetaminophen 325 Mg Tab) 650 mg PO Q4H PRN PRN Reason: Pain or Fever Stop: 07/27/21 19:57 Enoxaparin Sodium (Enoxaparin 80 Mg/0.8 Ml Syr) 70 mg SQ Q12H [facility] Stop: 07/28/21 21:59 Last Admin: 06/28/21 21:37 Dose: 70 mg Documented by: Metoprolol Tartrate (Metoprolol Tartrate 25 Mg Tab) 25 mg PO BID [facility] Stop: 07/28/21 09:29 Last Admin: 06/28/21 21:37 Dose: 25 mg Documented by: Warfarin Sodium (Warfarin Sod 5 Mg Tab) 5 mg PO DAILY@1600 [facility] Stop: 07/28/21 15:59 Last Admin: 06/28/21 18:41 Dose: 5 mg Documented by:
[2021-06-29] MEDS: METOPROLOL TARTRATE 25 MG TAB PO SCH (08:51)
--- NOTE | 2021-06-29 10:01 | Cardiology Progress Note ---
Date of Service June 29, 2021 Assessment & Plan (1) Atrial fibrillation with RVR: (2) Aortic stenosis: (3) Lower extremity edema: Plan: Continue metoprolol tartrate 25 mg twice daily. Eliquis is cost prohibitive due to insurance constraints. Patient will be transition to warfarin. Outpatient follow-up with the [facility] antico[facility] clinic recommended. Close cardiology follow-up in 1 week. Repeat resting echocardiogram in 12 months for surveillance of aortic stenosis. Admission and Anticipated Discharge Date Admission Date: June 27, 2021 Subjective Patient seen examined at the bedside. Requesting discharge. Feeling well today. Denies chest discomfort, palpitations, or shortness of breath. No orthopnea, PND, or edema. Heart rate improved with addition of metoprolol. Telemetry reviewed demonstrating atrial fibrillation with heart rate ranging from 90-115 bpm. No signs/symptoms of GI/ blood loss. Review of Systems Review of Systems: All systems reviewed & are unremarkable except as noted in Subjective Physical Exam Constitutional: well developed and well nourished; no acute distress and not ill appearing Respiratory: normal respiratory effort; no respiratory distress, no labored breathing and no retractions Auscultation: lungs clear to auscultation bilaterally; no crackles, no rales, no rhonchi and no wheezes Cardiovascular: Rate/Rhythm: + irregularly irregular Heart Sounds: normal S1, normal S2 and + murmur (2/6 low pitched mid peaking systolic ejection murmur) Vessels: no JVD and no carotid bruit Extremities: + edema (Trace to mild bilateral ankle edema) Gastrointestinal (Abdomen): Inspection/Auscultation: abdomen normal to inspection and normal bowel sounds; abdomen not distended Percussion/Palpation: abdomen soft; abdomen nontender, no guarding and abdomen not rigid Psychiatric: A+Ox3, euthymic affect Results & Data ([facility]) Vital Signs (Past 12 Hours) Vital Signs Pulse Pulse Resp BP BP Pulse Ox Pulse Ox 06/29/21 08:35 97 06/29/21 08:00 116 H 18 119/90 06/29/21 07:00 113 H 20 06/29/21 06:43 110 H 21 118/92 96 06/29/21 06:00 105 H 18 06/29/21 05:00 113 H 18 06/29/21 04:37 71 19 131/102 H 91 06/29/21 03:00 105 H 21 131/97 95 06/28/21 23:00 108 H 17 06/28/21 22:00 99 H 20
[2021-06-29] MEDS: ENOXAPARIN 80 MG/0.8 ML SYR SQ SCH (10:59)
--- NOTE | 2021-06-29 12:41 | Discharge Summary ---
Date of Service June 29, 2021 Admission HPI Per Admitting Provider Patient is 86-year-old female with PMH osteoporosis presented to ER from PCPs office for tachycardia. Patient reports exertional shortness of breath for the past month. Also reports lower extremity edema with left leg being worse than the right leg for the past several months. Today was being seen at PCPs office and was noted to have irregular pulse and found to have A. fib RVR on EKG and was referred to ER. At rest patient denies any shortness of breath. She denies any chest pain, dizziness, palpitations. No known cardiac history. Denies fever/chills, diaphoresis, N/V/D/C, [place], dizziness, syncope, vision changes, neck pain, orthopnea, palpitations, cough, sore throat, choking, otalgia, rhinorrhea, abdominal pain, paresthesias, weakness, extremity weakness, rashes, urinary symptoms. In ER patient afebrile, P: 140, R: 18, BP 124/94, 97% on room air. No leukocytosis, no significant electrolyte abnormality, TSH WNL, negative initial troponin. EKG A. fib RVR rate 153. In ER was given 500 mL NSS, diltiazem 10 mg IV. Admission Exam Per Admitting Provider General: no distress, WDWN Head: normocephalic, atraumatic Eyes: conjunctiva non-injected, anicteric ENT: hard of hearing, normal inspection external ears, nose, mucous membranes moist Neck: supple, trachea midline Lungs: clear, no respiratory distress, no wheezing/rhonchi/rales CV: irregularly irregular, rate 120, +bilateral lower extremity edema Abd: normal BS, soft, non-tender Ext: no erythema, no calf tenderness, +venous stasis changes bilateral lower legs Neuro: A&O x 3, no focal deficits noted, normal affect Skin: warm, dry Principal Diagnosis Atrial fibrillation with RVR Aortic stenosis Discharge Exam General: elderly F in NAD Head: normocephalic, atraumatic Eyes: conjunctiva non-injected, anicteric ENT: hard of hearing, normal inspection external ears, nose, mucous membranes moist Neck: supple Lungs: clear, no respiratory distress, no wheezing/rhonchi/rales CV: irregularly irregular, rate 90s, + trace b/l lower extremity edema Abd: normal BS, soft, non-tender Ext: no erythema, no calf tenderness, +venous stasis changes bilateral lower legs Neuro: A&O x 3, no focal deficits noted, normal affect Skin: warm, dry Discharge Data Allergies Allergy/AdvReac Type Severity Reaction Status Date / Time No Known Allergies Allergy Unverified 06/27/21 18:13 Consultations 06/27/21 18:04 ED Decision to Admit Stat 06/27/21 19:58 Consult Cardiology Routine Ordered Studies 06/27/21 18:44 US venous doppler LE BI Urgent FINDINGS: There is normal compressibility, flow, and augmentation within the bilateral lower extremity deep venous systems. Mildly complex left-sided Schwab's cyst measures 3.5 x 4.1 x 1.6 cm. IMPRESSION: No DVT within the right or left lower extremity. Hospital Course (1) Atrial fibrillation with RVR: 86 yo F female w/ osteoporosis presented to ER from PCPs office for found new onset atrial fibrillation. C/O exertional SOB x month. In ER patient afebrile, P: 140, R: 18, BP 124/94, 97% on room air. No leukocytosis, no significant electrolyte abnormality, TSH WNL, negative initial troponin. EKG A. fib RVR rate 153. In ER was given 500 mL NSS, diltiazem 10 mg IV pulse down to 98 and back up to 130's Started Cardizem drip [id number]: 3 (age, female) IV heparin Metoprolol tartrate 12.5 po BID Echo-EF 55 to 60%. RV is mildly dilated. RV systolic function is mildly reduced. LA is moderately dilated. AV is trileaflet. AV is moderately calcified. Moderate aortic stenosis is present. Mild aortic regurg. There is moderate tricuspid regurg. Estimated systolic pulmonary pressure is 57 mmHg. Dilated inferior vena cava with reduced collapsibility with sniff indicates an elevated right atrial pressure of 15 mmHg. Repeat troponin - negative Cardiology consulted -Recommend to stop IV heparin and start Eliquis, and continue rate control with metoprolol 25 mg twice daily Currently patient is comfortable, heart rate in 70s. Unfortunately Eliquis is too expensive for the patient, transitioned to Coumadin, with Lovenox injection for bridging 06/29 -patient feels well, and would like to be discharged home. She is comfortable with injecting Lovenox and be discharged with Lovenox and Coumadin. Follow-up appointments arranged for the patient. (2) Lower extremity edema: BLE, left worse than right x months Doppler BLE to r/o DVT - negative for DVT (3) Osteoporosis: Hold alendronate for now Follows with Dr Zahra Monte for routine care Total Time Total Time Spent Total Time Spent (In Minutes): 40 Discharge Plan Discharge Items Patient Disposition: Home - Self-Care Reason For Visit: CARDIAC ASSESSMENT (NEW ONSET A-FIB), LEG EDEMA Discharge Diagnosis: Atrial fibrillation with RVR Aortic stenosis Activity: Per Instructions section Non-emergency contact: Primary Care Provider and [employer] Call non-emergency contact if: you have any medication questions and your symptoms worsen Follow-up/Referrals: Paul Stevenson DO [Physician] - (Date & Time 07/05/2021 2:00 PM Provider Paul Stevenson Jr., DO Department Cardiology, [facility] ) Zahra Monte DO [Primary Care Provider] - (Date & Time 07/03/2021 3:00 PM Provider Zahra Monte DO Department Family Practice [facility] ) Diet: Heart Healthy Addtl Attending Provider Instructions: Follow-up with your primary care doctor (07/03/2021) and cardiology (07/05/2021). Take metoprolol, 25 mg twice a day, to control your heart rate. Inject Lovenox for next 4 days, to make sure that you are fully anticoagulated. You will need to take Coumadin/warfarin every day. Coumadin/warfarin as well as Lovenox are both blood thinners. It will be important to get your blood work done, to check INR, to make sure that the dose is therapeutic/you are taking the right dose of Coumadin/warfarin. This is often managed by your primary care doctor or anticoagulation clinic. We will contact anticoagulation clinic at the time of your discharge. Pending Studies at Discharge: No Stand-Alone Forms: My [facility] Poached Jobs, Smoking Cessation Medications and DC Order Prescriptions: New enoxaparin [Lovenox] 80 mg/0.8 mL Syringe 70 mg subcut Q12H 4 Days Qty: 5.6 RF: 0 warfarin 5 mg Tablet 5 mg PO DAILY@1600 Qty: 30 RF: 0 metoprolol tartrate 25 mg Tablet 25 mg PO BID Qty: 60 RF: 0 Continued alendronate 70 mg tablet See Rx Instructions .ROUTE .COMPLEX RF: 0 Discharge Orders: Discharge Order (Routine); Ordered 06/29/21 Ordered By: Jabari Leahy Admission Data Admit Date/Time: 06/27/21 18:19 Attending Provider: Jabari Leahy Admit Provider: Paul Balderas Primary Care Provider: Zahra Monte Other Providers: Paul Balderas ; Daniel Bui
== END 2021-06-29 14:45 | disposition home or self-care (01) | DRG 310 ==
LOC: ED 16:12 → EDINP 18:19 → SUATTDRO 18:19 → EDINP 19:59
DX: I35.0 Nonrheumatic aortic (valve) stenosis; Z79.01 Long term (current) use of anticoagulants; R60.0 Localized edema; I48.91 Unspecified atrial fibrillation; M81.0 Age-related osteoporosis without current pathological fracture